=== PATIENT | female | born 1990 | race Caucasian/White ===

== ENCOUNTER 2018-07-14 10:41 | Emergency (ER) | payer SELFPAY ==
[~2018-07-14] VITALS: Ht 154.9 cm; Wt 71.8 kg
[2018-07-14 11:17] VITALS: BP 140/79; PULSE 92; RESP 18; Ht 154.9 cm; Wt 71.8 kg
[2018-07-14] MEDS ORDERED: ACETAMINOPHEN 325 MG TAB PO ONE (13:30)
[2018-07-14] MEDS ORDERED: ACET500C5 PO (14:58)
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
== END 2018-07-14 15:04 | disposition home or self-care (01) ==
LOC: FTE 10:41
DX: M54.2 Cervicalgia (principal); R07.9 Chest pain, unspecified; R55 Syncope and collapse
CPT/HCPCS: 70450; 71045; 72040; 81025